=== PATIENT | male | born 2005 | race Caucasian/White ===

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

== ENCOUNTER → 2023-11-03 | Outpatient (REF) | payer MEDICAID ==
[2023-11-03 14:03] LABS: ALBUMIN 4.5 G/DL (3.2-5.2); ALKALINE PHOSPHATASE 118 U/L (46-116); ALT/SGPT 86 U/L (7.0-40); AST/SGOT 28 U/L (<34); BILIRUBIN,TOTAL 0.4 MG/DL (0.3-1.2); BLOOD UREA NITROGEN 8 MG/DL (9-23); CALCIUM LEVEL 10.4 MG/DL (8.5-10.1); CARBON DIOXIDE LEVEL 30 MMOL/L (20-31); CHLORIDE LEVEL 104 MMOL/L (98-107); CREATININE FOR GFR 0.72 MG/DL (0.70-1.30); GLUCOSE, FASTING 158 MG/DL (60-100); POTASSIUM SERUM 4.2 MMOL/L (3.5-5.1); SODIUM LEVEL 140 MMOL/L (136-145); THYROID STIMULATING HORMONE 1.903 uIU/ML (0.48-4.17); TOTAL PROTEIN 7.9 G/DL (5.7-8.2)
[2023-11-03 14:04] LABS: HEMOGLOBIN A1c 6.5 % (4.0-6.0)
== END ==
LOC: M LAB REF 12:35
PROVIDERS: ATTEND Family Medicine Addiction Medicine
DX: R73.03 Prediabetes (principal)

== ENCOUNTER 2024-02-04 17:08 | Emergency (ER) | payer MEDICAID ==
[~2024-02-04] VITALS: Ht 182.9 cm; Wt 103.9 kg
[~2024-02-04 17:08] MED LIST changes: -ZIPR60CA11; +ZIPR60CA21
[2024-02-04 17:11] VITALS: TEMP 99.7
[2024-02-04 18:23] LABS: BASO % 0.5 % (0.0-1.0); EOS # 0.1 10^3/uL (0.0-0.5); EOS % 1.8 % (0.0-3.0); HEMATOCRIT 43.8 % (42.0-52.0); HEMOGLOBIN 15.1 g/dl (13.5-17.5); LYMPH # 1.7 10^3/uL (1.5-5.0); LYMPH % 25.1 % (24.0-44.0); MEAN CORPUSCULAR HEMOGLOBIN 30.3 pg (27.0-33.0); MEAN CORPUSCULAR HGB CONC 34.5 g/dl (32.0-36.5); MEAN CORPUSCULAR VOLUME 87.8 fl (80.0-96.0); MONO # 0.6 10^3/uL (0.0-0.8); MONO % 9.1 % (2.0-8.0); NEUTROPHILS # 4.2 10^3/uL (1.5-8.5); NEUTROPHILS % 63.3 % (36.0-66.0); PLATELET COUNT, AUTOMATED 248 10^3/uL (150-450); RED BLOOD COUNT 4.99 10^6/uL (4.30-6.10); WHITE BLOOD COUNT 6.6 10^3/uL (4.0-10.0)
[2024-02-04 18:48] LABS: ALBUMIN 4.6 G/DL (3.2-5.2); ALKALINE PHOSPHATASE 112 U/L (40-129); ALT/SGPT 153 U/L (7.0-40); AST/SGOT 71 U/L (<34); BILIRUBIN,TOTAL 0.4 MG/DL (0.3-1.2); BLOOD UREA NITROGEN 7 MG/DL (9-23); CALCIUM LEVEL 10.2 MG/DL (8.5-10.1); CARBON DIOXIDE LEVEL 28 MMOL/L (20-31); CHLORIDE LEVEL 101 MMOL/L (98-107); CREATININE FOR GFR 0.67 MG/DL (0.70-1.30); GLUCOSE, FASTING 131 MG/DL (60-100); POTASSIUM SERUM 4.3 MMOL/L (3.5-5.1); SODIUM LEVEL 137 MMOL/L (136-145); TOTAL PROTEIN 8.4 G/DL (5.7-8.2)
[2024-02-04 19:06] LABS: AMPHETAMINES LEVEL URINE NEGATIVE (NEGATIVE); BARBITURATES URINE NEGATIVE (NEGATIVE); BENZODIAZEPINES URINE NEGATIVE (NEGATIVE); COCAINE METABOLITE URINE NEGATIVE (NEGATIVE); METHADONE URINE NEGATIVE (NEGATIVE); OPIATES URINE NEGATIVE (NEGATIVE); PHENCYCLIDINE URINE NEGATIVE (NEGATIVE)
[2024-02-04 19:08] LABS: CANNABINOIDS URINE POSITIVE (NEGATIVE)
[2024-02-04 20:18] VITALS: BP 126/78; O2SAT 98
== END 2024-02-04 20:22 | disposition home or self-care (01) ==
LOC: M ED 17:08
DX: R10.84 Generalized abdominal pain (principal); E11.9 Type 2 diabetes mellitus without complications; F84.0 Autistic disorder; F17.200 Nicotine dependence, unspecified, uncomplicated; Z79.2 Long term (current) use of antibiotics; Z79.899 Other long term (current) drug therapy

== ENCOUNTER → 2024-03-08 | Outpatient (REF) | payer MEDICAID ==
[2024-03-08 14:38] LABS: ALBUMIN 4.7 G/DL (3.2-5.2); ALKALINE PHOSPHATASE 98 U/L (40-129); ALT/SGPT 112 U/L (7.0-40); AST/SGOT 50 U/L (<34); BILIRUBIN,TOTAL 0.7 MG/DL (0.3-1.2); BLOOD UREA NITROGEN 8 MG/DL (9-23); CALCIUM LEVEL 9.5 MG/DL (8.5-10.1); CARBON DIOXIDE LEVEL 28 MMOL/L (20-31); CHLORIDE LEVEL 103 MMOL/L (98-107); CHOLESTEROL LEVEL 203 MG/DL (<200); CHOLESTEROL RISK RATIO 5.91 (<5); CREATININE FOR GFR 0.74 MG/DL (0.70-1.30); GLUCOSE, FASTING 142 MG/DL (60-100); HDL CHOLESTEROL 34.3 MG/DL (>40); LDL CHOLESTEROL 130.1 MG/DL (<100); NON-HDL-C 168.7 MG/DL; POTASSIUM SERUM 4.3 MMOL/L (3.5-5.1); SODIUM LEVEL 140 MMOL/L (136-145); TRIGLYCERIDES LEVEL 193 MG/DL (<150)
[2024-03-08 14:48] LABS: HEMOGLOBIN A1c 6.7 % (4.0-6.0)
== END ==
LOC: M LAB REF 12:25
PROVIDERS: ATTEND Family Medicine Addiction Medicine
DX: R73.9 Hyperglycemia, unspecified (principal)

== ENCOUNTER 2024-10-02 16:55 | Inpatient (IN) | payer MEDICAID ==
[~2024-10-02] VITALS: Ht 182.9 cm; Wt 86.0 kg
[~2024-10-02 16:55] MED LIST changes: -GUAN2TAB; +GUAN2TAB PO; +METH36TA13; -METH36TA5
[2024-10-02 18:03] LABS: PLATELET COUNT, AUTOMATED 256 10^3/uL (150-450)
[2024-10-02 19:25] LABS: AST/SGOT 26 U/L (<34); CALCIUM LEVEL 10.8 MG/DL (8.5-10.1); CARBON DIOXIDE LEVEL 27.4 MMOL/L (20-31); CHLORIDE LEVEL 103 MMOL/L (98-107); CREATININE FOR GFR 0.77 MG/DL (0.70-1.30); GLOMERULAR FILTRATION RATE > 90.0 (>60); POTASSIUM SERUM 4.3 MMOL/L (3.5-5.1); SODIUM LEVEL 142 MMOL/L (136-145)
[2024-10-02 19:26] LABS: ALT/SGPT 36 U/L (7.0-40)
[2024-10-02 19:28] LABS: ETHYL ALCOHOL (ETHANOL) < 0.003 % (0.000-0.010); SALICYLATE LEVEL < 3.0 MG/DL (<30)
[2024-10-02 20:04] LABS: AMPHETAMINES LEVEL URINE NEGATIVE (NEGATIVE); BARBITURATES URINE NEGATIVE (NEGATIVE); BENZODIAZEPINES URINE NEGATIVE (NEGATIVE); CANNABINOIDS URINE POSITIVE (NEGATIVE); COCAINE METABOLITE URINE NEGATIVE (NEGATIVE); METHADONE URINE NEGATIVE (NEGATIVE); OPIATES URINE NEGATIVE (NEGATIVE)
[2024-10-02 20:35] LABS: PHENCYCLIDINE URINE NEGATIVE (NEGATIVE)
[2024-10-02] MEDS ORDERED: MOM 30 ML SUSPENSION UDC PO PRN (20:35)
[2024-10-02] MEDS ORDERED: MAALOX 30 ML SUSP *UDC PO PRN (20:35)
[2024-10-02] MEDS ORDERED: IBUPROFEN 400 MG TAB PO PRN (20:35)
[2024-10-02 21:50] VITALS: BP 126/69; TEMP 97.2; O2SAT 97
[2024-10-02] MEDS: traZODone 50 MG TAB PO PRN (23:05)
[2024-10-03 06:40] VITALS: BP 133/74; TEMP 98.4; O2SAT 96
[2024-10-03] MEDS ORDERED: GLUCOSE 4 GM CHEW PO PRN (11:35)
[2024-10-03] MEDS ORDERED: DEXTROSE 50% 50 ML SYRINGE IV PRN (11:35)
[2024-10-03] MEDS ORDERED: GLUCAGON INJ 1 MG VIAL SC PRN (11:35)
[2024-10-03] MEDS ORDERED: GUAN1TAB17 PO (11:48)
[2024-10-03] MEDS ORDERED: METF500T13 PO (11:48)
[2024-10-03] MEDS ORDERED: ZIPR80CA31 PO (11:48)
[2024-10-03] MEDS ORDERED: ZIPR60CA21 PO (11:48)
[2024-10-03] MEDS ORDERED: HOME MED LIST COMPLETE! XX SCH (11:50)
[2024-10-03] MEDS: INSULIN LISPRO (NovoLOG) PER UNIT SC SCH ×2 (12:00→20:58)
[2024-10-03] MEDS: metFORMIN 500 MG TAB PO SCH (12:13)
[2024-10-03 15:00] VITALS: BP 150/65; TEMP 97.8; O2SAT 98
[2024-10-03] MEDS: SERTRALINE HCL 50 MG TAB PO SCH (15:08)
[2024-10-03] MEDS: guanFACINE 1 MG TAB PO SCH (15:20)
[2024-10-03] MEDS: ZIPRASIDONE 20MG CAPSULE PO SCH (17:12)
[2024-10-04 06:45] VITALS: BP 157/72; TEMP 98
[2024-10-04] MEDS ORDERED: traZODone 100 MG TAB PO PRN (11:25)
[2024-10-04 15:16] VITALS: BP 162/82; TEMP 97.2; O2SAT 97
[2024-10-05 06:36] VITALS: BP 138/60; TEMP 97.6; O2SAT 98
[2024-10-05] MEDS ORDERED: ONDANSETRON 4MG TAB PO PRN (09:55)
[2024-10-05] MEDS: ZIPRASIDONE 20MG CAPSULE PO ONE (12:50)
[2024-10-05 14:55] VITALS: BP 156/84; TEMP 98.8; O2SAT 94
[2024-10-05] MEDS: ZIPRASIDONE 20MG CAPSULE PO SCH (17:51)
[2024-10-05] MEDS: guanFACINE 1 MG TAB PO SCH (19:55)
[2024-10-06 06:37] VITALS: BP 138/103; TEMP 97.1; O2SAT 97
[2024-10-06 06:43] VITALS: BP 140/84
[2024-10-06] MEDS: ZIPRASIDONE 80 MG PO SCH (08:26)
[2024-10-06 15:27] VITALS: BP 144/85; TEMP 98.4; O2SAT 98
[2024-10-07] MEDS: ACETAMINOPHEN 325 MG TAB PO PRN (05:15)
[2024-10-07 06:39] VITALS: BP 139/94; TEMP 97.8; O2SAT 98
[2024-10-07 15:35] VITALS: BP 149/79; TEMP 97.1; O2SAT 98
[2024-10-08 06:26] VITALS: BP 155/81; TEMP 98.7; O2SAT 97
[2024-10-08] MEDS: SERTRALINE HCL 50 MG TAB PO SCH (08:15)
[2024-10-08 17:25] VITALS: BP 155/73; TEMP 99.2; O2SAT 98
[2024-10-09 06:21] VITALS: BP 131/64; TEMP 98; O2SAT 96
[2024-10-09] MEDS ORDERED: ZIPR80CA30 PO (08:15)
[2024-10-09] MEDS ORDERED: SERT50TA29 PO (08:15)
[2024-10-09] MEDS ORDERED: GEOD20CA PO (08:15)
[2024-10-09] MEDS ORDERED: GUAN1TAB17 PO (08:16)
[2024-10-09 08:25] VITALS: BP 131/64
== END 2024-10-09 11:24 | disposition home or self-care (01) | DRG 753 ==
LOC: M ED 16:55 → M ED INP 20:31 → M PSY 21:35
PROVIDERS: ADMIT Psychiatry & Neurology Neurology; ATTEND General Practice
DX: F31.32 Bipolar disorder, current episode depressed, moderate (principal); R45.850 Homicidal ideations; R45.851 Suicidal ideations; E11.9 Type 2 diabetes mellitus without complications; F41.0 Panic disorder [episodic paroxysmal anxiety]; F84.5 Asperger's syndrome; I10 Essential (primary) hypertension; F12.10 Cannabis abuse, uncomplicated; Z79.84 Long term (current) use of oral hypoglycemic drugs; Z79.899 Other long term (current) drug therapy; Z88.8 Allergy status to other drugs, medicaments and biological substances; Z91.51 Personal history of suicidal behavior

== ENCOUNTER 2024-12-30 11:44 | Inpatient (IN) | payer MEDICAID ==
[~2024-12-30] VITALS: Ht 180.3 cm; Wt 87.1 kg
[~2024-12-30 11:44] MED LIST changes: +GEOD20CA PO; +GUAN1TAB17 PO; +METF500T13 PO; +SERT50TA29 PO; +ZIPR60CA21 PO; +ZIPR80CA30 PO; +ZIPR80CA31 PO
[2024-12-30 12:25] LABS: PLATELET COUNT, AUTOMATED 231 10^3/uL (150-450)
[2024-12-30 12:55] LABS: ETHYL ALCOHOL (ETHANOL) 0.006 % (0.000-0.010)
[2024-12-30 12:57] LABS: SALICYLATE LEVEL < 3.0 MG/DL (<30)
[2024-12-30 12:58] LABS: AMPHETAMINES LEVEL URINE NEGATIVE (NEGATIVE); BARBITURATES URINE NEGATIVE (NEGATIVE); COCAINE METABOLITE URINE NEGATIVE (NEGATIVE); PHENCYCLIDINE URINE NEGATIVE (NEGATIVE)
[2024-12-30 12:59] LABS: BENZODIAZEPINES URINE NEGATIVE (NEGATIVE); METHADONE URINE NEGATIVE (NEGATIVE); OPIATES URINE NEGATIVE (NEGATIVE)
[2024-12-30 13:02] LABS: ALT/SGPT 45 U/L (7.0-40); AST/SGOT 27 U/L (<34); CALCIUM LEVEL 9.2 MG/DL (8.5-10.1); CANNABINOIDS URINE POSITIVE (NEGATIVE); CARBON DIOXIDE LEVEL 29 MMOL/L (20-31); CHLORIDE LEVEL 101 MMOL/L (98-107); CREATININE FOR GFR 0.70 MG/DL (0.70-1.30); GLOMERULAR FILTRATION RATE > 90.0 (>60); POTASSIUM SERUM 3.8 MMOL/L (3.5-5.1); SODIUM LEVEL 140 MMOL/L (136-145)
[2024-12-30] MEDS ORDERED: HOME MED LIST COMPLETE! XX SCH (14:20)
[2024-12-30] MEDS ORDERED: IBUPROFEN 400 MG TAB PO PRN (18:25)
[2024-12-30] MEDS ORDERED: MAALOX 30 ML SUSP *UDC PO PRN (18:25)
[2024-12-30] MEDS ORDERED: MOM 30 ML SUSPENSION UDC PO PRN (18:25)
[2024-12-30] MEDS ORDERED: ACETAMINOPHEN 325 MG TAB PO PRN (18:25)
[2024-12-30 20:56] VITALS: BP 155/80; TEMP 98; O2SAT 97
[2024-12-30] MEDS: ZIPRASIDONE 20MG CAPSULE PO SCH (21:39)
[2024-12-30] MEDS: guanFACINE 1 MG TAB PO SCH (21:39)
[2024-12-31 06:22] VITALS: BP 140/75; TEMP 97.1; O2SAT 100
[2024-12-31] MEDS: ZIPRASIDONE 80 MG PO SCH (08:54)
[2024-12-31] MEDS: metFORMIN 500 MG TAB PO SCH (08:54)
[2024-12-31] MEDS: FLUoxetine 20 MG CAP PO SCH (11:10)
[2024-12-31 18:36] VITALS: BP 128/69; TEMP 98.7; O2SAT 97
[2025-01-01 06:31] VITALS: BP 139/66; TEMP 98.3; O2SAT 95
[2025-01-01 18:34] VITALS: BP 147/80; TEMP 98; O2SAT 100
[2025-01-02 06:52] VITALS: BP 138/70; TEMP 98; O2SAT 96
[2025-01-02 16:24] VITALS: BP 154/72; TEMP 98
[2025-01-03 06:50] VITALS: BP 142/63; TEMP 96.9; O2SAT 99
[2025-01-03 15:51] VITALS: BP 144/68; TEMP 97.1; O2SAT 97
[2025-01-03] MEDS: ZIPRASIDONE 20MG CAPSULE PO SCH (20:08)
[2025-01-04 06:32] VITALS: BP 142/69; TEMP 97.5; O2SAT 96
[2025-01-04] MEDS: ZIPRASIDONE 80 MG PO SCH (08:02)
[2025-01-04 15:46] VITALS: BP 112/62; TEMP 98; O2SAT 97
[2025-01-05 06:29] VITALS: BP 148/73; TEMP 98; O2SAT 100
[2025-01-05 18:28] VITALS: BP 147/77; TEMP 98; O2SAT 97
[2025-01-05 20:01] VITALS: BP 135/88; O2SAT 99
[2025-01-05 20:38] VITALS: BP 135/88
[2025-01-06 06:44] VITALS: BP 167/70; TEMP 97.9; O2SAT 98
[2025-01-06] MEDS ORDERED: FLUO-365 PO (08:58)
[2025-01-06] MEDS ORDERED: GUAN1TA PO (08:58)
[2025-01-06] MEDS ORDERED: GEOD20CA PO (08:58)
[2025-01-06] MEDS ORDERED: ZIPR80CA30 PO (08:58)
[2025-01-06] MEDS ORDERED: METF500T13 PO (08:58)
[2025-01-06] MEDS ORDERED: HYDR50TA70 PO (08:58)
== END 2025-01-06 14:53 | disposition home or self-care (01) | DRG 753 ==
LOC: M ED 11:44 → M ED INP 18:21 → M PSY 20:25
PROVIDERS: ADMIT Psychiatry & Neurology Neurology; ATTEND Psychiatry & Neurology Psychiatry
DX: F31.32 Bipolar disorder, current episode depressed, moderate (principal); E11.9 Type 2 diabetes mellitus without complications; R45.851 Suicidal ideations; F41.9 Anxiety disorder, unspecified; F84.0 Autistic disorder; F12.10 Cannabis abuse, uncomplicated; I10 Essential (primary) hypertension; F90.9 Attention-deficit hyperactivity disorder, unspecified type; Z81.8 Family history of other mental and behavioral disorders; Z79.84 Long term (current) use of oral hypoglycemic drugs; Z79.899 Other long term (current) drug therapy; Z88.8 Allergy status to other drugs, medicaments and biological substances

== ENCOUNTER 2025-01-11 22:13 | Inpatient (IN) | payer MEDICAID ==
[~2025-01-11] VITALS: Ht 180.3 cm; Wt 82.9 kg
[~2025-01-11 22:13] MED LIST changes: +FLUO-365 PO; +GUAN1TA PO; +HYDR50TA70 PO
[2025-01-11 22:39] LABS: PLATELET COUNT, AUTOMATED 310 10^3/uL (150-450)
[2025-01-11 23:26] LABS: ETHYL ALCOHOL (ETHANOL) < 0.003 % (0.000-0.010)
[2025-01-11 23:27] LABS: SALICYLATE LEVEL < 3.0 MG/DL (<30)
[2025-01-11 23:28] LABS: ALT/SGPT 38 U/L (7.0-40); AST/SGOT 31 U/L (<34); CALCIUM LEVEL 9.8 MG/DL (8.5-10.1); CARBON DIOXIDE LEVEL 16 MMOL/L (20-31); CHLORIDE LEVEL 102 MMOL/L (98-107); CREATININE FOR GFR 0.95 MG/DL (0.70-1.30); GLOMERULAR FILTRATION RATE > 90.0 (>60); POTASSIUM SERUM 3.8 MMOL/L (3.5-5.1); SODIUM LEVEL 141 MMOL/L (136-145)
[2025-01-11 23:55] LABS: VENOUS BASE EXCESS -0.3 (-2.0-2.0); VENOUS HCO3 24.1 MMOL/L (23.0-27.0); VENOUS O2 SATURATION 72.0 % (60.0-80.0); VENOUS PARTIAL PRESSURE CO2 39.1 mmHg (38.0-50.0); VENOUS PARTIAL PRESSURE O2 37.3 mmHg (30.0-50.0); VENOUS PH 7.408 UNITS (7.330-7.430); VENOUS STANDARD HCO3 23.5 MMOL/L; VENOUS TOTAL CO2 25.3 MMOL/L (24.0-28.0)
[2025-01-12] MEDS ORDERED: FLUO-365 PO (00:04)
[2025-01-12] MEDS ORDERED: HYDR50TA70 PO (00:04)
[2025-01-12] MEDS ORDERED: ZIPR80CA31 PO (00:07)
[2025-01-12] MEDS ORDERED: ZIPR60CA21 PO (00:07)
[2025-01-12] MEDS ORDERED: MAGN100T PO (00:07)
[2025-01-12] MEDS ORDERED: HOME MED LIST COMPLETE! XX SCH (00:10)
[2025-01-12 00:33] LABS: AMPHETAMINES LEVEL URINE NEGATIVE (NEGATIVE); BARBITURATES URINE NEGATIVE (NEGATIVE); BENZODIAZEPINES URINE NEGATIVE (NEGATIVE); COCAINE METABOLITE URINE NEGATIVE (NEGATIVE); METHADONE URINE NEGATIVE (NEGATIVE); OPIATES URINE NEGATIVE (NEGATIVE); PHENCYCLIDINE URINE NEGATIVE (NEGATIVE)
[2025-01-12 00:35] LABS: CANNABINOIDS URINE POSITIVE (NEGATIVE)
[2025-01-12] MEDS: NS 0.9% IV ONE (00:53)
[2025-01-12] MEDS: [UNRECOGNIZED DRUG - OTHER] IV ONE (00:53)
[2025-01-12 02:58] LABS: CALCIUM LEVEL 8.8 MG/DL (8.5-10.1); CARBON DIOXIDE LEVEL 25 MMOL/L (20-31); CHLORIDE LEVEL 104 MMOL/L (98-107); CREATININE FOR GFR 0.70 MG/DL (0.70-1.30); GLOMERULAR FILTRATION RATE > 90.0 (>60); POTASSIUM SERUM 3.6 MMOL/L (3.5-5.1); SODIUM LEVEL 140 MMOL/L (136-145)
[2025-01-12] MEDS ORDERED: MOM 30 ML SUSPENSION UDC PO PRN (05:35)
[2025-01-12] MEDS ORDERED: traZODone 50 MG TAB PO PRN (05:35)
[2025-01-12] MEDS ORDERED: IBUPROFEN 400 MG TAB PO PRN (05:35)
[2025-01-12] MEDS ORDERED: ACETAMINOPHEN 325 MG TAB PO PRN (05:35)
[2025-01-12] MEDS ORDERED: MAALOX 30 ML SUSP *UDC PO PRN (05:35)
[2025-01-12] MEDS: ZIPRASIDONE 80 MG PO SCH (08:51)
[2025-01-12] MEDS: metFORMIN 500 MG TAB PO SCH (08:51)
[2025-01-12] MEDS: FLUoxetine 20 MG CAP PO SCH (08:51)
[2025-01-12 15:59] VITALS: BP 137/81; TEMP 97.2; O2SAT 96
[2025-01-12] MEDS: ZIPRASIDONE 20MG CAPSULE PO SCH (20:10)
[2025-01-12] MEDS: guanFACINE 1 MG TAB PO SCH (20:11)
[2025-01-13 06:31] VITALS: BP 135/79; TEMP 97.2; O2SAT 100
[2025-01-13] MEDS: FLUoxetine 20 MG CAP PO SCH (09:25)
[2025-01-13 20:12] VITALS: BP 135/79
[2025-01-14] MEDS: FLUZONE VACCINE TRI PF(25-26) 0.5ML SYRINGE IM.IMMUN ONE (09:03)
== END 2025-01-14 15:34 | disposition home or self-care (01) | DRG 753 ==
LOC: M ED 22:13 → M ED INP 01-12 05:32 → M PSY 01-12 06:01
PROVIDERS: ADMIT General Practice; ATTEND Psychiatry & Neurology Psychiatry
DX: F31.32 Bipolar disorder, current episode depressed, moderate (principal); E87.20 Acidosis, unspecified; R45.851 Suicidal ideations; F41.0 Panic disorder [episodic paroxysmal anxiety]; F84.0 Autistic disorder; F12.10 Cannabis abuse, uncomplicated; Z79.84 Long term (current) use of oral hypoglycemic drugs; Z79.899 Other long term (current) drug therapy; Z88.8 Allergy status to other drugs, medicaments and biological substances

== ENCOUNTER → 2025-02-07 | Outpatient (REF) | payer MEDICAID ==
[~2025-02-07] MED LIST changes: +MAGN100T PO
[2025-02-07 17:16] LABS: ALT/SGPT 42 U/L (7.0-40); AST/SGOT 24 U/L (<34); CALCIUM LEVEL 9.1 MG/DL (8.5-10.1); CARBON DIOXIDE LEVEL 32 MMOL/L (20-31); CHLORIDE LEVEL 102 MMOL/L (98-107); CREATININE FOR GFR 0.74 MG/DL (0.70-1.30); GLOMERULAR FILTRATION RATE > 90.0 (>60); POTASSIUM SERUM 5.1 MMOL/L (3.5-5.1); SODIUM LEVEL 140 MMOL/L (136-145)
[2025-02-07 17:18] LABS: FREE T4 1.27 NG/DL (0.89-1.76)
[2025-02-07 17:25] LABS: ESTIMATED AVERAGE GLUCOSE 123.0 MG/DL (60-110)
== END ==
LOC: M LAB REF 16:25
PROVIDERS: ATTEND Family Medicine Addiction Medicine
DX: R73.03 Prediabetes (principal)

== ENCOUNTER 2025-02-09 16:47 | Emergency (ER) | payer MEDICAID ==
[~2025-02-09] VITALS: Ht 180.3 cm; Wt 88.3 kg
[2025-02-09 16:49] VITALS: BP 127/61; TEMP 98.3; O2SAT 97
[2025-02-09 17:29] LABS: KETONE, URINE AUTO RFX NEGATIVE (NEGATIVE); LEUKOCYTE ESTERASE UR AUTO RFX NEGATIVE (NEGATIVE); NITRITE, URINE AUTO RFX NEGATIVE (NEGATIVE); RBC, URINE AUTO RFX 0 /HPF (0-3); SQUAM EPITHELIAL CELL UR AURFX 0 /HPF (0-6); WBC, URINE AUTO RFX 0 /HPF (0-3)
[2025-02-09 18:31] LABS: Trichomonas vaginalis (AMP) NOT DETECTED (NEGATIVE)
[2025-02-09 18:55] LABS: GC DNA AMPLIFICATION NEGATIVE (NEGATIVE)
[2025-02-09 20:19] LABS: HEPATITIS B SURFACE ANTIBODY NEGATIVE (POSITIVE)
[2025-02-09 20:45] LABS: HIV 1&2 SCREEN NEGATIVE (NEGATIVE)
[2025-02-09 20:52] LABS: HEPATITIS C VIRUS ABY INDEX 0.02 INDEX (<0.8)
== END 2025-02-09 20:57 | disposition home or self-care (01) ==
LOC: M ED 16:47
DX: Z11.3 Encounter for screening for infections with a predominantly sexual mode of transmission (principal); E11.9 Type 2 diabetes mellitus without complications; F12.10 Cannabis abuse, uncomplicated; Z88.8 Allergy status to other drugs, medicaments and biological substances; Z79.84 Long term (current) use of oral hypoglycemic drugs; Z79.899 Other long term (current) drug therapy